=== PATIENT | male | born 1950 | race Caucasian/White ===

== ENCOUNTER 2025-08-23 10:04 | Outpatient (CLI) | payer MEDICARE, BC ==
[~2025-08-23 10:04] MED LIST: ALEN70TA60 PO; ASCO10004 PO; ATOR20TA PO; CALC250T2 PO; CHOL500061 PO; CYAN-36 PO; CYCL-920 PO; DOCU100C40 PO; DULO60CA65 PO; FERR-28 PO; FLEC100T2 PO; LEVO125T8 PO; MINERAL PO; MOVE FREE PO; OMEG-5 PO; OMEP20CA16 PO; PRAM0.5T12 PO; PRAS25CA8 PO; RIVA20TA PO; TIOT18CA3 INH; TRAM50TA2 PO; TRAN4TAB25 PO; TRIA1CAP88 PO; VERA240T92 PO; ZINC220T3 PO; [UNRECOGNIZED DRUG - CODE] TOP; [UNRECOGNIZED DRUG - OTHER] PO
[2025-08-23 11:02] LABS: MEAN PLATELET VOLUME 9.1 FL (7.4-10.4); RED CELL DISTRIBUTION WIDTH 14.7 % (11.5-14.5)
[2025-08-23 11:20] LABS: CREATININE 1.44 MG/DL (0.60-1.10); TOTAL CARBON DIOXIDE 27.8 MMOL/L (24-32); eGFR 48 ML/MIN
--- NOTE | 2025-08-23 16:23 | RADIOLOGY REPORT ---
CT POST WATCHMAN INDICATION: PRESENCE OF OTHER CARDIAC IMPLANTS AND GRAFTS TECHNIQUE: CT cardiac imaging for pulmonary vein analysis has been obtained. 3- D, MIP, and MPR images obtained. All CT scans at this facility use dose modulation, iterative reconstruction, and/or weight based dosing when appropriate to reduce radiation dose to as low as reasonably achievable. COMPARISON: None available at the time of dictation. STUDY QUALITY: Good FINDINGS: LEFT ATRIAL APPENDAGE: In regards to the clinical question, no evidence of contrast leakage along the margins of the occlusion device CARDIAC CHAMBERS: Normal size of ventricles and right atrium. No intracardiac thrombus. No pericardial thickening or effusion. Prominence of the main pulmonary artery, which may indicate pulmonary hypertension.. IMPRESSION: No evidence of contrast leakage along margin left atrial appendage occlusion device
== END 2025-08-23 23:59 | disposition home or self-care (01) ==
LOC: RAD 10:04
PROVIDERS: ATTEND Student in an Organized Health Care Education/Training Program
DX: Z95.818 Presence of other cardiac implants and grafts (principal)
CPT/HCPCS: 36415; 71275; 75572; 80053; 85025; Q9967